=== PATIENT | male | born 1970 | race Two or more races ===

== ENCOUNTER → 2021-06-13 | Day surgery (SDC) | payer MEDICAID ==
[2021-06-11 11:16] LABS: Urine WBC None Seen /hpf (0 - 3)
[2021-06-11 11:24] LABS: Basophils # (auto) 0.1 10 ^3/uL (0-0.2); Basophils % (auto) 0.6 % (0.0-2.0); Eosinophils # (auto) 0.1 10 ^3/uL (0-0.8); Hematocrit 37.4 % (41.0-53.0); Hemoglobin 13.1 g/dL (13.5-17.5); Lymphocytes # (auto) 2.7 10 ^3/uL (0.4-5.4); Lymphocytes % (auto) 25.3 % (10.0-50.0); Mean Corpuscular Hgb Conc. 35.1 g/dL (32.0-36.0); Mean Corpuscular Volume 88.4 fL (80.0-100.0); Monocytes # (auto) 0.8 10 ^3/uL (0-1.3); Neutrophils # (auto) 7.1 10 ^3/uL (1.6-8.6); Neutrophils % (auto) 66.1 % (37.0-80.0); Nucleated Red Blood Cells % 0.1 %; Red Blood Cells 4.23 10^6/uL (4.5-5.90); Red Cell Distribution Width 13.4 % (11.8-14.3); White Blood Cell 10.8 10^3/uL (4.4-10.8)
[2021-06-11 11:37] LABS: INR 0.95 (0.9-1.15); Partial Thromboplastin Time 29.1 sec (23.6-33.0)
[2021-06-11 11:53] LABS: Albumin 3.8 g/dL (3.4-5.0); Calcium 9.3 mg/dL (8.5-10.1)
[2021-06-11 12:00] LABS: BUN/Creatinine Ratio 16.9; Bilirubin, Total 0.4 mg/dL (0.2-1.0); Total Protein 7.4 g/dL (6.4-8.2)
[2021-06-11 12:01] LABS: Urine Bacteria NONE SEEN /hpf (None Seen); Urine Blood Negative /uL (Negative); Urine Specific Gravity 1.017 (1.001-1.035)
[~2021-06-13] VITALS: Ht 175.3 cm; Wt 108.9 kg
[~2021-06-13] MED LIST: ACE650RS PR; ALPR2TAB2 PO; BUPR2MIS SL; CEPH500C PO; DULO60CA PO; DexAMETHasone SOD PHOS 10MG/1ML VIAL INJ ONE; FENT12DI TD; FENT25DI2 TD; GABA-339 PO; INDO50CA82 PO; KETOROLAC TROMETH 30 MG/ML 1ML VIAL IV ONE; LABETALOL HCL 5 MG/ML 4ML SYRINGE IV PRN; LAMO200T34 PO; LIDO5DIS21 TOP; MELO-61 PO; MIDAZOLAM HCL 2MG/2ML 2ml VIAL (1mg/ml) IV PRN; MIDAZOLAM HCL 2MG/2ML 2ml VIAL (1mg/ml) ONE; ONDANSETRON HCL 4 MG/2 ML VIAL IV PRN; PROPOFOL 10 MG/ML 20 ML IV ONE; QUET50TA PO; TRAM-300 PO; TRAZ300T13 PO; ceFAZolin 1GM/50ML 100 ML IV ONE; ePHEDrine SULFATE 50 MG/ML AMP IV PRN; fentaNYL CITRATE 100 MCG/2 ML VL IV PRN; fentaNYL CITRATE 100 MCG/2 ML VL ONE
[2021-06-13 11:05] VITALS: BP 133/71
== END | disposition home or self-care (01) ==
LOC: SUR 07:08
PROVIDERS: ATTEND Student in an Organized Health Care Education/Training Program
DX: M77.42 Metatarsalgia, left foot (principal); M20.42 Other hammer toe(s) (acquired), left foot; M25.775 Osteophyte, left foot; I10 Essential (primary) hypertension; F41.9 Anxiety disorder, unspecified; F32.A Depression, unspecified; F10.10 Alcohol abuse, uncomplicated; E66.9 Obesity, unspecified; F17.200 Nicotine dependence, unspecified, uncomplicated; Z98.890 Other specified postprocedural states; Z79.899 Other long term (current) drug therapy; Z68.35 Body mass index [BMI] 35.0-35.9, adult; Z20.822 Contact with and (suspected) exposure to COVID-19; Z86.2 Personal history of diseases of the blood and blood-forming organs and certain disorders involving the immune mechanism
CPT/HCPCS: 26535; 28296; 36415; 73630; 76000; 80053; 81001; 85025; 85610; 85730; J0690; J1100; J2250; J2704; J3010; U0003